=== PATIENT | male | born 1980 | race African-American/Black ===

== ENCOUNTER 2016-11-11 17:09 | Emergency (ER) | payer OTHER ==
[2016-11-11 17:13] VITALS: BP 126/65; PULSE 83; TEMP 98; BMI 20.3
--- NOTE | 2016-11-11 17:50 | PDOC ---
History of Present Illness - General Chief Complaint: Eye Problem Stated Complaint: FOREIGN OBJECT STUCK IN EYE Time Seen by Provider: 11/11/16 17:48 History Source: Patient - History of Present Illness Initial Comments: 11/11/16 18:02 36 year old male with right eye pain after piece of Sheet[place] fell in right eye. patient c/o pain. no Past History - Past Medical History Allergies/Adverse Reactions: Allergies Allergy/AdvReac Type Severity Reaction Status Date / Time No Known Allergies Allergy Verified 11/11/16 17:11 Home Medications: Ambulatory Orders NK [No Known Home Medication] 11/11/16 - Psycho/Social/Smoking Cessation Hx Anxiety: No Suicidal Ideation: No Smoking History: Current every day smoker Have you smoked in the past 12 months: Yes Information on smoking cessation initiated: No Hx Alcohol Use: No Drug/Substance Use Hx: Yes (marijuana) Substance Use Type: Marijuana *Physical Exam - Vital Signs Last Vital Signs Temp Pulse Resp BP Pulse Ox 98 F 83 18 126/65 100 11/11/16 17:11 11/11/16 17:11 11/11/16 17:11 11/11/16 17:11 11/11/16 17:11 - Physical Exam General Appearance: Yes: Appropriately Dressed HEENT: positive: Other (right corneal abrasion 6o clock location. vision intact. ) Extremity: positive: Normal Capillary Refill, Normal Inspection, Normal Range of Motion Integumentary: positive: Normal Color, Dry, Warm Neurologic: positive: Fully Oriented, Alert, Normal Mood/Affect *DC/Admit/Observation/Transfer Diagnosis at time of Disposition: Corneal abrasion Qualifiers: Encounter type: initial encounter Laterality: right Qualified Code(s): S05.01XA - Injury of conjunctiva and corneal abrasion without foreign body, right eye, initial encounter - Discharge Dispostion Disposition: HOME - Referrals Referrals: Adolfo Hernandez MD [Staff Physician] - - Patient Instructions Printed Discharge Instructions: Corneal Abrasion Additional Instructions: apply erythromycin every 4 hours to right eye. follow up with ophthalmology as soon as possible. return to the ER if symptoms worsen.
[2016-11-11] MEDS ORDERED: ERYTHROMYCIN 0.5% OPHTHALMIC OINTMENT 3.5 GM TUBE ONE (17:54)
[2016-11-11] MEDS ORDERED: ERYTHROMYCIN 0.5% OPHTHALMIC OINTMENT 3.5 GM TUBE OD ONE (18:10)
== END 2016-11-11 18:22 | disposition home or self-care (01) ==
LOC: JERFT 17:09
DX: S05.01XA Injury of conjunctiva and corneal abrasion without foreign body, right eye, initial encounter (principal); S00.211A Abrasion of right eyelid and periocular area, initial encounter; W20.8XXA Other cause of strike by thrown, projected or falling object, initial encounter; Y93.89 Activity, other specified; Y92.89 Other specified places as the place of occurrence of the external cause
CPT/HCPCS: 99281-25

== ENCOUNTER 2016-12-16 17:20 | Emergency (ER) | payer OTHER ==
[2016-12-16 17:36] VITALS: BP 133/62; PULSE 72; TEMP 98; BMI 20.9
[2016-12-16] MEDS ORDERED: KETOROLAC TROMETHAMINE 60 MG/2 ML VIAL IM ONE (18:42)
[2016-12-16] MEDS ORDERED: CYCLOBENZAPRINE HCL 10 MG TABLET (FP) PO ONE (18:42)
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
[2016-12-16] MEDS ORDERED: CYCLOBENZAPRINE HCL 10 MG TABLET (FP) ONE (18:55)
[2016-12-16] MEDS ORDERED: KETOROLAC TROMETHAMINE 60 MG/2 ML VIAL ONE (18:55)
== END 2016-12-16 19:07 | disposition home or self-care (01) ==
LOC: JERFT 17:20
PROC: 3E0233Z Introduction of Anti-inflammatory into Muscle, Percutaneous Approach (ICD-10-PCS; principal; 2016-12-16)
DX: M54.5 Low back pain (principal); R51 Headache; V42.5XXA Car driver injured in collision with two- or three-wheeled motor vehicle in traffic accident, initial encounter; Y93.89 Activity, other specified; Y92.410 Unspecified street and highway as the place of occurrence of the external cause; F17.210 Nicotine dependence, cigarettes, uncomplicated
CPT/HCPCS: 99281-25